=== PATIENT | female | born 1945 | race Caucasian/White ===

== ENCOUNTER 2018-04-03 08:22 | Day surgery (SDC) | payer MEDICARE, OTHER ==
[~2018-04-03 08:22] MED LIST: Acetaminophen TAB* 325 MG PO PRN; Buffered Lidocaine 0.9% SYRIN* 5 ML/SYR SYRINGE INTRADERM ONE; Midazolam* 1 MG/ML 2 ML VIAL (2 MG) ONE
[2018-04-03] MEDS ORDERED: Lidocaine 1%* 5 ML VIAL ONE (09:54)
[2018-04-03] MEDS ORDERED: acetaZOLAMIDE TAB* 250 MG ONE (09:54)
[2018-04-03] MEDS ORDERED: Neomycin/Polymy/Dex OPTH.SUSP* MAXITROL 0.1% 5 ML ONE (09:54)
[2018-04-03] MEDS ORDERED: Lidocaine 2% EPI 1:200000 MPF*10-20 ML VIAL ONE (09:54)
[2018-04-03] MEDS ORDERED: Cyclopentolate 1% OPTH.SOL* 2 ML BTL ONE (09:54)
[2018-04-03] MEDS ORDERED: Povidone Iodine 5% OPTH* 30 ML BTL ONE (09:55)
[2018-04-03] MEDS ORDERED: Phenylephrine 2.5% OPTH.SOL* 2 ML BTL ONE (09:55)
[2018-04-03] MEDS ORDERED: Proparacaine 0.5% OPHTH.SOL* 15 ML BTL ONE (09:55)
[2018-04-03] MEDS ORDERED: Ketorolac 0.5% OPHTH (NF) 0.5 % 5 ML BTL ONE (09:55)
[2018-04-03] MEDS ORDERED: fentaNYL* 50 MCG/ML 2 ML VIAL (100 MCG VIAL) ONE (10:34)
[2018-04-03 10:52] VITALS: BP 127/78
--- NOTE | 2018-04-04 01:10 | OP ---
DATE OF OPERATION: 04/03/18 [facility] DATE OF : 41 SURGEON: Eddie Sanderson M.D. PREOPERATIVE DIAGNOSIS: Cataract right eye POSTOPERATIVE DIAGNOSIS: Cataract right eye OPERATIVE PROCEDURE: Extracapsular cataract extraction with intraocular lens implant right eye. DESCRIPTION OF PROCEDURE: The patient was brought to the operating room after being given 1/2% Alcaine with epinephrine drops in the preoperative area. The eye was prepped and draped in the usual sterile fashion. Sterile drape and eyelid speculum were placed. Again, topical 1/2% Alcaine with epinephrine was given. A paracentesis incision was made at the 9 o'clock position with the No.75 blade. Clear cornea incision 2.2 x 2.2-mm was created at the 12 o'clock position starting at the anterior limbus using the 2.2-mm keratome. The anterior chamber was irrigated with 0.4 mL of 1% non-preservative intracameral lidocaine and filled with DisCoVisc. A capsulorrhexis was completed using the cystotome and the Utrata forceps. Hydrodissection was performed with balanced salt solution. The lens nucleus was removed with the Phacoemulsification handpiece without incident. Cortex was removed with the irrigation-aspiration handpiece. The capsular bag was re-inflated using DisCoVisc and an [id number] implant was inserted with the shooter. The irrigation-aspiration handpiece was used to remove all residual DisCoVisc. The eye was refilled with balanced salt solution and the wound checked and found to be watertight. Topical Maxitrol drops were given. [id number]/[facility] #: [id number] [facility]ENTERChad
== END 2018-04-03 10:56 | disposition home or self-care (01) ==
LOC: OREAST 08:22
PROVIDERS: ATTEND Specialist
DX: H25.811 Combined forms of age-related cataract, right eye (principal); M31.6 Other giant cell arteritis; H04.123 Dry eye syndrome of bilateral lacrimal glands; I10 Essential (primary) hypertension; J44.9 Chronic obstructive pulmonary disease, unspecified; E03.9 Hypothyroidism, unspecified; F41.8 Other specified anxiety disorders; Z87.891 Personal history of nicotine dependence
CPT/HCPCS: A9270-GY; J2250; J3010; V2632

== ENCOUNTER 2018-04-10 07:50 | Day surgery (SDC) | payer MEDICARE, OTHER ==
[~2018-04-10 07:50] MED LIST changes: -Midazolam* 1 MG/ML 2 ML VIAL (2 MG) ONE
[2018-04-10] MEDS ORDERED: Ketorolac 0.5% OPHTH (NF) 0.5 % 5 ML BTL ONE (08:43)
[2018-04-10] MEDS ORDERED: Neomycin/Polymy/Dex OPTH.SUSP* MAXITROL 0.1% 5 ML ONE (08:43)
[2018-04-10] MEDS ORDERED: Proparacaine 0.5% OPHTH.SOL* 15 ML BTL ONE (08:43)
[2018-04-10] MEDS ORDERED: Lidocaine 1%* 5 ML VIAL ONE (08:43)
[2018-04-10] MEDS ORDERED: acetaZOLAMIDE TAB* 250 MG ONE (08:43)
[2018-04-10] MEDS ORDERED: Povidone Iodine 5% OPTH* 30 ML BTL ONE (08:43)
[2018-04-10] MEDS ORDERED: Cyclopentolate 1% OPTH.SOL* 2 ML BTL ONE (08:43)
[2018-04-10] MEDS ORDERED: Lidocaine 2% EPI 1:200000 MPF*10-20 ML VIAL ONE (08:43)
[2018-04-10] MEDS ORDERED: Phenylephrine 2.5% OPTH.SOL* 2 ML BTL ONE (08:43)
[2018-04-10] MEDS ORDERED: Midazolam* 1 MG/ML 2 ML VIAL (2 MG) ONE (10:37)
[2018-04-10] MEDS ORDERED: fentaNYL* 50 MCG/ML 2 ML VIAL (100 MCG VIAL) ONE (10:37)
[2018-04-10 11:52] VITALS: BP 142/87
--- NOTE | 2018-04-11 05:25 | OP ---
DATE OF OPERATION: 04/10/18 - [facility] DATE OF : 41. SURGEON: Eddie Sanderson M.D. PREOPERATIVE DIAGNOSIS: Cataract, left eye. POSTOPERATIVE DIAGNOSIS: Cataract, left eye. OPERATIVE PROCEDURE: Extracapsular cataract extraction with intraocular lens implant, left eye. DESCRIPTION OF PROCEDURE: The patient was brought to the operating room after being given 1/2% Alcaine with epinephrine drops in the preoperative area. The eye was prepped and draped in the usual sterile fashion. Sterile drape and eyelid speculum were placed. Again, topical 1/2% Alcaine with epinephrine was given. A paracentesis incision was made at the 3 o'clock position with the No.75 blade. Clear cornea incision 2.2 x 2.2-mm was created at the 6 o'clock position starting at the anterior limbus using the 2.2-mm keratome. The anterior chamber was irrigated with 0.4 mL of 1% non-preservative intracameral lidocaine and filled with DisCoVisc. A capsulorrhexis was completed using the cystotome and the Utrata forceps. Hydrodissection was performed with balanced salt solution. The lens nucleus was removed with the Phacoemulsification handpiece without incident. Cortex was removed with the irrigation-aspiration handpiece. The capsular bag was re-inflated using DisCoVisc and an [id number] implant was inserted with the shooter. The irrigation-aspiration handpiece was used to remove all residual DisCoVisc. The eye was refilled with balanced salt solution and the wound checked and found to be watertight. Topical Maxitrol drops were given. [id number]/[facility] #: [id number] [facility]
== END 2018-04-10 11:38 | disposition home or self-care (01) ==
LOC: OREAST 07:50
PROVIDERS: ATTEND Specialist
DX: H25.812 Combined forms of age-related cataract, left eye (principal); M31.6 Other giant cell arteritis; Z87.891 Personal history of nicotine dependence; H04.123 Dry eye syndrome of bilateral lacrimal glands; E03.9 Hypothyroidism, unspecified; I95.9 Hypotension, unspecified; Z85.3 Personal history of malignant neoplasm of breast; J44.9 Chronic obstructive pulmonary disease, unspecified; I42.9 Cardiomyopathy, unspecified
CPT/HCPCS: A9270-GY; J2250; J3010; V2632

== ENCOUNTER 2023-04-11 10:22 | Inpatient (IN) ==
[2023-04-11 12:51] LABS: ABS Eosinophils 0.1 10^3/uL (0.0-0.5); ABS Lymphocytes 0.6 10^3/uL (1.0-4.8); ABS Monocytes 0.7 10^3/uL (0.0-0.9); ABS Neutrophils 7.9 10^3/uL (1.5-7.6); ABS Nucleated RBC 0.01 10^3/ul; Eosinophil % 1.3 %; Hematocrit 38.8 % (35-45); Hemoglobin 12.6 g/dL (11.5-14.3); Lymphocyte % 6.5 %; Mean Corpuscular Hemoglobin 32.5 pg (27-33); Mean Corpuscular Hgb Conc 32.6 g/dL (31-36); Mean Corpuscular Volume 99.9 fL (80-97); Mean Platelet Volume 9.7 fL (7.5-11.2); Nucleated Red Blood Cells % 0.1 /100 WBC (0.0-0.4); Platelet Count 136 10^3/uL (150-450); Red Blood Count 3.88 10^6/uL (3.63-4.92); Red Cell Distribution Width 13.5 % (12-17); White Blood Count 9.4 10^3/uL (3.8-11.8)
[2023-04-11 12:57] LABS: Activated Partial Thrombo Time 25.1 seconds (26.0-38.0); INR 1.07 (0.83-1.13)
[2023-04-11 12:59] LABS: Albumin 4.2 g/dL (3.2-5.2); Potassium 4.2 mmol/L (3.5-5.0); Total Bilirubin 0.7 mg/dL (0.2-1.0)
[2023-04-11 13:05] LABS: Albumin/Globulin Ratio 1.8 (1-3); C Reactive Protein 72.31 mg/L (<8.01); Creatinine, Serum 0.73 mg/dL (0.51-0.95); Globulin 2.4 g/dL (2-4); Total Protein 6.6 g/dL (6.4-8.9); eGFR CKD-EPI 83.6 (>60)
[2023-04-11 14:14] LABS: High Sensitivity Troponin 1 Hr 20 pg/mL (<15)
[2023-04-11] MEDS ORDERED: Senna TAB 8.6 mg TAB PO PRN (16:07)
[2023-04-11] MEDS ORDERED: Polyethylene Glycol 3350 17 GM PACKET PO PRN (16:07)
[2023-04-11] MEDS ORDERED: Ondansetron 4 mg VIAL 2 MG/ML 2 ml VIAL IV PRN (16:07)
[2023-04-11] MEDS ORDERED: Digoxin IV 0.5 MG/2 ML AMP (0.25 MG/ML) IV SLOW PU ONE (17:00)
[2023-04-11] MEDS ORDERED: Furosemide 20 mg/2 ml IV VIAL IV ONE (17:08)
[2023-04-11 18:08] LABS: Magnesium 1.8 mg/dL (1.9-2.7)
[2023-04-11 18:13] LABS: HDL Cholesterol 57.4 mg/dL
[2023-04-11] MEDS: Enoxaparin 60 MG/0.6 ML SYR SUBCUT SCH (18:33)
[2023-04-11] MEDS ORDERED: Magnesium Sulfate 2 gm BAG 2 GM/50 ML BAG IVPB ONE (18:41)
[2023-04-11] MEDS: Cholecalciferol (VIT D3) 1,000 unit TAB PO SCH ×2 (19:34→19:40)
[2023-04-11 21:44] LABS: Urine Appearance Cloudy; Urine Bilirubin Negative (Negative); Urine Blood Negative (Negative); Urine Color Yellow; Urine Glucose Negative (Negative); Urine Ketones Trace (Negative); Urine Nitrite Negative (Negative); Urine Protein 2+(100 mg/dL) (Negative); Urine Specific Gravity 1.024 (1.002-1.030); Urine Urobilinogen Negative (Negative)
[2023-04-11 21:53] LABS: Urine Amorphous Crystals Present (Absent); Urine Bacteria 1+ (Absent); Urine Red Blood Cell Absent (Absent); Urine Squamous Epithelial Cell Present (Absent); Urine White Blood Cell 2+(11-20/hpf) (Absent)
[2023-04-12] MEDS: Enoxaparin 60 MG/0.6 ML SYR SUBCUT SCH ×2 (05:43→18:19)
[2023-04-12] MEDS: PTO: BUDESONIDE/GLYCOPYR/FORMOTEROL MDI (NF) INH SCH ×2 (06:00→11:01)
[2023-04-12 06:57] LABS: ABS Basophils 0.1 10^3/uL (0.0-0.1); ABS Eosinophils 0.2 10^3/uL (0.0-0.5); ABS Lymphocytes 1.1 10^3/uL (1.0-4.8); ABS Monocytes 1.1 10^3/uL (0.0-0.9); ABS Nucleated RBC 0.01 10^3/ul; Eosinophil % 2.1 %; Hematocrit 35.5 % (35-45); Hemoglobin 11.8 g/dL (11.5-14.3); Lymphocyte % 10.3 %; Mean Corpuscular Hemoglobin 32.8 pg (27-33); Mean Corpuscular Hgb Conc 33.1 g/dL (31-36); Mean Platelet Volume 9.7 fL (7.5-11.2); Nucleated Red Blood Cells % 0.1 /100 WBC (0.0-0.4); Platelet Count 139 10^3/uL (150-450); Red Blood Count 3.58 10^6/uL (3.63-4.92); Red Cell Distribution Width 13.5 % (12-17); White Blood Count 10.5 10^3/uL (3.8-11.8)
[2023-04-12 07:14] LABS: Calcium 9.5 mg/dL (8.6-10.3); Creatinine, Serum 1.08 mg/dL (0.51-0.95); Magnesium 2.3 mg/dL (1.9-2.7); Potassium 3.8 mmol/L (3.5-5.0); eGFR CKD-EPI 52.3 (>60)
[2023-04-12] MEDS: Cholecalciferol (VIT D3) 1,000 unit TAB PO SCH (08:25)
[2023-04-12] MEDS: Venlafaxine XR 75 mg PO SCH (08:25)
[2023-04-12] MEDS: Aspirin EC 81 mg TAB.EC (enteric coated) PO SCH (08:26)
[2023-04-12] MEDS: Potassium Chloride LIQUID 20 MEQ/15 ML LIQUID PO SCH ×2 (15:54→20:42)
[2023-04-12] MEDS ORDERED: NS 0.9% 250 ml 250 ML IV ONE (16:00)
[2023-04-13] MEDS: Enoxaparin 60 MG/0.6 ML SYR SUBCUT SCH (06:30)
[2023-04-13 07:08] LABS: ABS Eosinophils 0.2 10^3/uL (0.0-0.5); ABS Lymphocytes 0.9 10^3/uL (1.0-4.8); ABS Monocytes 1.2 10^3/uL (0.0-0.9); ABS Neutrophils 9.1 10^3/uL (1.5-7.6); Eosinophil % 2.1 %; Hematocrit 36.1 % (35-45); Hemoglobin 11.8 g/dL (11.5-14.3); Lymphocyte % 7.6 %; Mean Corpuscular Hemoglobin 32.4 pg (27-33); Mean Corpuscular Hgb Conc 32.7 g/dL (31-36); Mean Corpuscular Volume 98.9 fL (80-97); Mean Platelet Volume 10.1 fL (7.5-11.2); Platelet Count 139 10^3/uL (150-450); Red Blood Count 3.65 10^6/uL (3.63-4.92); White Blood Count 11.4 10^3/uL (3.8-11.8)
[2023-04-13 07:19] LABS: Albumin 3.7 g/dL (3.2-5.2); Albumin/Globulin Ratio 1.7 (1-3); Calcium 9.5 mg/dL (8.6-10.3); Creatinine, Serum 0.98 mg/dL (0.51-0.95); Globulin 2.2 g/dL (2-4); Potassium 4.3 mmol/L (3.5-5.0); Total Bilirubin 0.5 mg/dL (0.2-1.0); Total Protein 5.9 g/dL (6.4-8.9); eGFR CKD-EPI 58.7 (>60)
[2023-04-13 07:53] LABS: Ferritin 39.4 ng/mL (11-307)
[2023-04-13] MEDS ORDERED: Midazolam 2 mg/2 ml VIAL 1 mg/ml 2 ml VIAL (2 mg) ONE (08:52)
[2023-04-13] MEDS ORDERED: Propofol 10 MG/ML 20 ML BTL ONE (10:00)
[2023-04-13] MEDS ORDERED: Flumazenil 0.5 mg/5 ml 0.1 MG/ML 5 ml VIAL ONE (11:15)
[2023-04-13 14:09] LABS: PCO2 Arterial 71 mmHg (35-45)
[2023-04-13] MEDS: Cholecalciferol (VIT D3) 1,000 unit TAB PO SCH (14:11)
[2023-04-13] MEDS: Aspirin EC 81 mg TAB.EC (enteric coated) PO SCH (14:12)
[2023-04-13] MEDS: Venlafaxine XR 75 mg PO SCH (14:12)
[2023-04-13] MEDS: PTO: BUDESONIDE/GLYCOPYR/FORMOTEROL MDI (NF) INH SCH (14:28)
[2023-04-14] MEDS: Albuterol HFA INHALER 8 gm MDI INH SCH ×3 (01:42→19:42)
[2023-04-14] MEDS: Ferric Gluconate IV 250 MG in NS 0.9% 250 ml 200 ML IVPB SCH (11:00)
[2023-04-14] MEDS: Aspirin EC 81 mg TAB.EC (enteric coated) PO SCH (11:05)
[2023-04-14] MEDS: Venlafaxine XR 75 mg PO SCH (11:05)
[2023-04-14] MEDS: Cholecalciferol (VIT D3) 1,000 unit TAB PO SCH (11:05)
[2023-04-14] MEDS: PTO: BUDESONIDE/GLYCOPYR/FORMOTEROL MDI (NF) INH SCH (11:06)
[2023-04-15 06:50] LABS: ABS Eosinophils 0.1 10^3/uL (0.0-0.5); ABS Lymphocytes 0.6 10^3/uL (1.0-4.8); ABS Monocytes 0.9 10^3/uL (0.0-0.9); ABS Nucleated RBC 0.01 10^3/ul; Eosinophil % 0.9 %; Hematocrit 35.5 % (35-45); Hemoglobin 11.7 g/dL (11.5-14.3); Lymphocyte % 6.6 %; Mean Corpuscular Hemoglobin 32.8 pg (27-33); Mean Corpuscular Hgb Conc 32.9 g/dL (31-36); Mean Corpuscular Volume 99.7 fL (80-97); Mean Platelet Volume 9.6 fL (7.5-11.2); Nucleated Red Blood Cells % 0.1 /100 WBC (0.0-0.4); Platelet Count 135 10^3/uL (150-450); Red Blood Count 3.56 10^6/uL (3.63-4.92); Red Cell Distribution Width 13.9 % (12-17); White Blood Count 8.5 10^3/uL (3.8-11.8)
[2023-04-15 07:23] LABS: Calcium 9.3 mg/dL (8.6-10.3); Creatinine, Serum 0.66 mg/dL (0.51-0.95); Magnesium 1.9 mg/dL (1.9-2.7); Potassium 4.4 mmol/L (3.5-5.0); eGFR CKD-EPI 89.2 (>60)
[2023-04-15] MEDS: Albuterol HFA INHALER 8 gm MDI INH SCH ×2 (08:18→20:04)
[2023-04-15] MEDS: Ferric Gluconate IV 250 MG in NS 0.9% 250 ml 200 ML IVPB SCH (10:07)
[2023-04-15] MEDS: Venlafaxine XR 75 mg PO SCH (10:11)
[2023-04-15] MEDS: Aspirin EC 81 mg TAB.EC (enteric coated) PO SCH (10:11)
[2023-04-15] MEDS: Cholecalciferol (VIT D3) 1,000 unit TAB PO SCH (10:11)
[2023-04-15] MEDS: PTO: BUDESONIDE/GLYCOPYR/FORMOTEROL MDI (NF) INH SCH (16:07)
[2023-04-16 06:39] LABS: ABS Eosinophils 0.2 10^3/uL (0.0-0.5); ABS Monocytes 1.1 10^3/uL (0.0-0.9); ABS Neutrophils 7.2 10^3/uL (1.5-7.6); ABS Nucleated RBC 0.02 10^3/ul; Eosinophil % 2.2 %; Hematocrit 36.9 % (35-45); Hemoglobin 11.9 g/dL (11.5-14.3); Lymphocyte % 10.7 %; Mean Corpuscular Hemoglobin 32.5 pg (27-33); Mean Corpuscular Hgb Conc 32.3 g/dL (31-36); Mean Corpuscular Volume 100.6 fL (80-97); Mean Platelet Volume 9.7 fL (7.5-11.2); Nucleated Red Blood Cells % 0.2 /100 WBC (0.0-0.4); Platelet Count 140 10^3/uL (150-450); Red Blood Count 3.67 10^6/uL (3.63-4.92); Red Cell Distribution Width 14.1 % (12-17); White Blood Count 9.5 10^3/uL (3.8-11.8)
[2023-04-16 06:58] LABS: Calcium 9.5 mg/dL (8.6-10.3); Creatinine, Serum 0.76 mg/dL (0.51-0.95); Potassium 4.1 mmol/L (3.5-5.0); eGFR CKD-EPI 79.7 (>60)
[2023-04-16] MEDS ORDERED: Furosemide 40 mg/4 ml IV VIAL IV ONE (07:29)
[2023-04-16] MEDS ORDERED: Furosemide 40 mg/4 ml IV VIAL IV SCH (08:00)
[2023-04-16] MEDS: Albuterol HFA INHALER 8 gm MDI INH SCH ×2 (08:36→20:11)
[2023-04-16] MEDS: Cholecalciferol (VIT D3) 1,000 unit TAB PO SCH (09:02)
[2023-04-16] MEDS: Ferric Gluconate IV 250 MG in NS 0.9% 250 ml 200 ML IVPB SCH (09:02)
[2023-04-16] MEDS: Aspirin EC 81 mg TAB.EC (enteric coated) PO SCH (09:03)
[2023-04-16] MEDS: Venlafaxine XR 75 mg PO SCH (09:03)
[2023-04-17] MEDS: Albuterol HFA INHALER 8 gm MDI INH SCH ×2 (05:58→20:23)
[2023-04-17 06:44] LABS: Blood Urea Nitrogen 23 mg/dL (6-24); CO2 Carbon Dioxide 40 mmol/L (22-32); Calcium 9.9 mg/dL (8.6-10.3); Chloride 99 mmol/L (101-111); Creatinine, Serum 0.66 mg/dL (0.51-0.95); Glucose 72 mg/dL (70-100); Sodium 143 mmol/L (135-145); eGFR CKD-EPI 89.2 (>60)
[2023-04-17 06:45] LABS: Anion Gap 4 mmol/L (2-16)
[2023-04-17 07:03] LABS: ABS Eosinophils 0.2 10^3/uL (0.0-0.5); ABS Lymphocytes 1.2 10^3/uL (1.0-4.8); ABS Neutrophils 6.6 10^3/uL (1.5-7.6); ABS Nucleated RBC 0.02 10^3/ul; Eosinophil % 2.5 %; Hematocrit 36.7 % (35-45); Hemoglobin 12.2 g/dL (11.5-14.3); Lymphocyte % 13.7 %; Mean Corpuscular Hgb Conc 33.2 g/dL (31-36); Mean Corpuscular Volume 99.3 fL (80-97); Nucleated Red Blood Cells % 0.2 /100 WBC (0.0-0.4); Platelet Count 216 10^3/uL (150-450); Red Blood Count 3.69 10^6/uL (3.63-4.92); Red Cell Distribution Width 13.7 % (12-17); White Blood Count 9.1 10^3/uL (3.8-11.8)
[2023-04-17 09:12] LABS: Magnesium 1.8 mg/dL (1.9-2.7); Potassium Redraw 3.5 mmol/L (3.5-5.0)
[2023-04-17] MEDS: Cholecalciferol (VIT D3) 1,000 unit TAB PO SCH (09:18)
[2023-04-17] MEDS: Venlafaxine XR 75 mg PO SCH (09:19)
[2023-04-17] MEDS: Aspirin EC 81 mg TAB.EC (enteric coated) PO SCH (09:20)
[2023-04-17] MEDS: Ferric Gluconate IV 250 MG in NS 0.9% 250 ml 200 ML IVPB SCH (09:22)
[2023-04-17] MEDS ORDERED: Magnesium Sulfate 2 gm BAG 2 GM/50 ML BAG IVPB ONE (11:04)
[2023-04-17] MEDS ORDERED: Potassium Chlor 20 meq TAB.ER PO ONE (12:35)
[2023-04-18 05:31] LABS: PCO2 Arterial 65 mmHg (35-45); PO2 Arterial 66 mmHg (80-100)
[2023-04-18 06:48] LABS: Calcium 9.8 mg/dL (8.6-10.3); Creatinine, Serum 0.82 mg/dL (0.51-0.95); Magnesium 2.4 mg/dL (1.9-2.7); Potassium 4.8 mmol/L (3.5-5.0); eGFR CKD-EPI 72.7 (>60)
[2023-04-18] MEDS: Albuterol HFA INHALER 8 gm MDI INH SCH ×2 (07:06→21:17)
[2023-04-18] MEDS: PTO: BUDESONIDE/GLYCOPYR/FORMOTEROL MDI (NF) INH SCH ×3 (10:27→12:12)
[2023-04-18] MEDS: Venlafaxine XR 75 mg PO SCH (10:42)
[2023-04-18] MEDS: Aspirin EC 81 mg TAB.EC (enteric coated) PO SCH (10:45)
[2023-04-18] MEDS: Cholecalciferol (VIT D3) 1,000 unit TAB PO SCH (10:45)
[2023-04-19] MEDS: Venlafaxine XR 75 mg PO SCH (07:31)
[2023-04-19] MEDS: Aspirin EC 81 mg TAB.EC (enteric coated) PO SCH (07:32)
[2023-04-19] MEDS: Cholecalciferol (VIT D3) 1,000 unit TAB PO SCH (07:32)
[2023-04-19] MEDS: Albuterol HFA INHALER 8 gm MDI INH SCH (09:21)
[2023-04-19 09:42] VITALS: BP 112/52
[2023-04-19] MEDS: PTO: BUDESONIDE/GLYCOPYR/FORMOTEROL MDI (NF) INH SCH (09:49)
[2023-04-19 10:02] LABS: Calcium 9.7 mg/dL (8.6-10.3); Creatinine, Serum 0.64 mg/dL (0.51-0.95); Magnesium 1.8 mg/dL (1.9-2.7); eGFR CKD-EPI 89.8 (>60)
[2023-04-19] MEDS ORDERED: Polyethylene Glycol 3350 17 GM PACKET PO SCH (12:00)
== END 2023-04-19 13:46 | DRG 308 ==
LOC: ED 10:22 → EDHOLD 16:07 → SUATTDRO 16:07 → MEDTELE 04-12 01:18
PROVIDERS: ADMIT Hospitalist; ATTEND Internal Medicine
PROC: O.CATEE (2023-04-13 08:45)